=== PATIENT | female | born 1970 | race African-American/Black ===

== ENCOUNTER 2020-07-26 11:03 | Inpatient (IN) | payer OTHER ==
[~2020-07-26] VITALS: Ht 152.4 cm; Wt 71.7 kg
[~2020-07-26 11:03] MED LIST: NORCO 5-325 TA1 EACH PO; PHENERGAN 25 MG25 M1 PO
[2020-07-26 11:14] VITALS: BP 144/70
[2020-07-26 11:49] LABS: URINE BILIRUBIN NEGATIVE (Negative); URINE BLOOD 3+ (Negative); URINE CLARITY CLEAR; URINE COLOR YELLOW; URINE GLUCOSE-RANDOM* NEGATIVE (Negative); URINE KETONES NEGATIVE (Negative); URINE LEUKOCYTES-REFLEX NEGATIVE (Negative); URINE NITRITE-REFLEX NEGATIVE (Negative); URINE PROTEIN (DIPSTICK) NEGATIVE (Negative); URINE UROBILINOGEN 0.2 E.U./dl (0.2-1.0)
[2020-07-26 12:09] LABS: CASTS None Seen /LPF (None Seen); SQUAMOUS 4-10 Moderate /LPF (0-3)
[2020-07-26 12:10] LABS: BACTERIA-REFLEX None Seen /HPF (None Seen); CRYSTALS None Seen /LPF (None Seen); URINE RBC >20 Many /HPF (0-2); URINE WBC-REFLEX 0-5 Rare /HPF (0-5)
[2020-07-26 12:18] LABS: EOSINOPHILS 0.2 % (0.0-3.0); MCV 60.4 fL (80.0-100.0)
[2020-07-26 12:19] LABS: ABSOLUTE NEUTROPHILS 4.8 thou/uL (1.4-8.2); BASOPHILS 1.7 % (0.0-2.0); HEMATOCRIT 22.7 % (37.0-47.0); HEMOGLOBIN 6.8 gm/dL (12.0-15.0); LYMPHOCYTES 19.8 % (24.0-44.0); MCH 18.1 pg (26.0-34.0); MONOCYTES 4.3 % (1.0-8.0); PLATELET COUNT 882 thou/uL (150-400); RBC 3.76 mil/uL (4.20-5.00); RDW 19.1 % (10.5-14.5); WBC 6.4 thou/uL (4.0-11.0)
[2020-07-26 12:29] LABS: CALCIUM 9.5 mg/dL (8.5-10.1); POTASSIUM 3.8 mmol/L (3.5-5.1)
[2020-07-26 14:00] LABS: ANISOCYTOSIS 1+; HYPOCHROMASIA 3+; MICROCYTES 2+; OVALOCYTES FEW; PLATELET ESTIMATE MARKEDLY INCREASED; POIKILOCYTOSIS SLIGHT
--- NOTE | 2020-07-26 14:25 | NUR ---
ASSUMED CARE OF PT WHEN TRANSFERRED TO #4 FROM CANALES BED #3. NO S/S DISTRESS OBSERVED. PT PLACED ON MONITOR, DENIES NEEDS AT THIS TIME.
[2020-07-26 18:17] VITALS: BP 125/75
[2020-07-26 18:28] LABS: FOLIC ACID 15.2 ng/mL (8.6-58.9)
[2020-07-26 18:30] VITALS: BP 126/77
[2020-07-26 19:40] VITALS: BP 135/69
[2020-07-26 22:15] VITALS: BP 125/63
--- NOTE | 2020-07-27 01:55 | NUR ---
completed blood transfusion from ed. vss see charted vitals.
[2020-07-27 02:10] VITALS: BP 124/66; BP 134/66
[2020-07-27 05:24] LABS: HEMATOCRIT 29.8 % (37.0-47.0); MCH 21.2 pg (26.0-34.0); MCHC 31.2 g/dL (28.0-37.0); RBC 4.4 mil/uL (4.20-5.00); RDW 28.9 % (10.5-14.5); WBC 9.2 thou/uL (4.0-11.0)
[2020-07-27 05:35] LABS: HEMOGLOBIN 9.3 gm/dL (12.0-15.0); MCV 67.8 fL (80.0-100.0)
[2020-07-27 07:11] VITALS: BP 152/81
--- NOTE | 2020-07-27 07:37 | EKG ---
[address] [place] [address] ELECTROCARDIOGRAM REPORT Name: GERMAN SILVEIRA Room #: 460-P ADM IN M.R.#: [id number] Admission: 07/26/20 Attend Phys: Jamie Adam MD Discharge: Date of : 74 Report #: [id number] [facility] ED Test Date: 2020-07-26 Test Time: 11:39:07 Pat Name: GERMAN SILVEIRA Department: Room: [facility] Gender: F Senior Accountant Analyst: JOÃO : 1970 Requested By: Shahram Freire Order Number: [id number] MD: Rob Renee Measurements Intervals [place] Rate: 78 P: 59 MI: 167 QRS: -1 QRSD: 93 T: 65 QT: 386 QTc: 440 Interpretive Statements Sinus rhythm Borderline T wave abnormalities No previous ECG available for comparison Electronically Signed On 07-27-2020 7:37:24 METAL DIE FINISHER by Rob Renee [email or web address] <ELECTRONICALLY SIGNED> By: Rob Renee MD, [facility] 07/27/20 0737 [id number] Rob Renee MD, FACC /EPI
--- NOTE | 2020-07-27 08:08 | NUR ---
ADMIT PT ADMITTED FOR DYSFUNCTIONAL UTERINE BLEEDING. BLEEDING HEAVILY PAD COUNT OF 3. 2 UNITS OF PRBC'S INFUSED ORDERED. VSS CONTINUE POC.
--- NOTE | 2020-07-27 09:11 | NUR ---
RD received consult for wound. Pt admitted for excessive uterine bleeding related to uterine fibroids. Noted small, L greater toe vacular wound. No other pressure ulcers noted. Pt with decreased appetite, N/V related to uterine cramping. RD encouraged small, frequent intakes of clear liquids and bland foods until N/V resolves. Pt grateful for visit, remains low nutritional risk with current interventions in place.
--- NOTE | 2020-07-27 12:39 | NUR ---
ASSUMED PT CARE THIS AM. PT HAS NO COMPLAINTS OF PAIN OR DIZZINESS. COMPLAINED OF NAUSEA, RESOLVED WITH MEDS GIVEN PER EMAR. PT AMBULATORY TO THE RESTROOM. IV PATENT, FLUIDS INFUSING WELL. CALLS APPROPRIATELY WHEN NEEDED.
[2020-07-27 15:57] VITALS: BP 146/79
[2020-07-27 19:13] VITALS: BP 138/73
--- NOTE | 2020-07-28 03:53 | NUR ---
ASSUMED CARE OF PT AT 1900. PT IS A/O X4 AND IS UP AD GABY. PT C/O NAUSEA. PRN NAUSEA MEDICATION GIVEN DIRECTED. PT CHANGED PAD X3 DUE TO BLOODY DRAINAGE. DEPO LUBRON SHOT NOT GIVEN THEIR IS NOT AN INFUSION NURSE IN HOUSE. WILL ENDORSE THIS INFORMATION TO DAYSHIFT NURSE TO NOTIFY INFUSION NURSE TO GIVE SHOT. DID NOT HAVE IV ACCESS FOR A WHILE THIS NOC IT INFILTRATED AND WAS REMOVED WITH CATHETER INTACT ON DAYSHIFT. ANOTHER IV PLACED AND RESUMED IV FLUIDS. VSS. NO C/O PAIN OR DISCOMFORT. CALL LIGHT IS WITHIN REACH. WILL CONTINUE TO MONITOR.
[2020-07-28 06:18] LABS: HEMOGLOBIN 9.3 gm/dL (12.0-15.0); MCH 20.6 pg (26.0-34.0); MCHC 29.9 g/dL (28.0-37.0); MCV 68.7 fL (80.0-100.0); RBC 4.51 mil/uL (4.20-5.00); RDW 28.7 % (10.5-14.5); WBC 9.9 thou/uL (4.0-11.0)
[2020-07-28 07:03] VITALS: BP 142/79
--- NOTE | 2020-07-28 13:28 | NUR ---
Assumed pt care at 7am.Pt in bed alert and oriented x4.Assessment completed. Pt wanted to rest and nap after breakfast.Pt c/o nausea and vomiting.Zofran ivp given as ordered with relief.Dr Graham here,order noted.Will continue to monitor.
[2020-07-28 15:22] VITALS: BP 149/94
[2020-07-28 19:19] VITALS: BP 151/80
--- NOTE | 2020-07-29 02:26 | NUR ---
ASSUMED CARE OF PT AT 1900. PT IS A/O X4 AND IS UP WITH SBA TO THE BR. PT HAD SHOWER AND ACCIDENTALLY DISCHARGED IV. REPLACED IV AND RESUMED FLUIDS. C/O NAUSEA. PRN NAUSEA MEDICATION GIVEN DIRECTED. FALL PRECAUTIONS ARE IMPLEMENTED, CALL LIGHT IS WITHIN REACH. WILL CONTINUE TO MONITOR.
[2020-07-29 05:37] LABS: HEMATOCRIT 28.4 % (37.0-47.0); HEMOGLOBIN 8.9 gm/dL (12.0-15.0); MCH 21.2 pg (26.0-34.0); MCHC 31.2 g/dL (28.0-37.0); MCV 67.9 fL (80.0-100.0); RBC 4.19 mil/uL (4.20-5.00); RDW 28.5 % (10.5-14.5); WBC 8.2 thou/uL (4.0-11.0)
[2020-07-29 07:36] VITALS: BP 151/84
[2020-07-29] MEDS ORDERED: IRON325 PO (10:27)
[2020-07-29] MEDS ORDERED: ZOFRAN ODT4 MG PO (10:27)
[2020-07-29 12:42] VITALS: BP 151/84
--- NOTE | 2020-07-29 16:38 | NUR ---
Assumed pt care at 7am.Assessment completed .Pt reported feeling better today but still bleeding.Dr Adam here,dc order noted but pt wanted to go home later this afternoon.Dr Graham notified about pt dc home and follow up visit order received.Dc summary compile and reviewed with pt.Saline lock dc'd.At 1500,pt dc home per wc accompanied by unit sec.
== END 2020-07-29 14:50 | disposition home or self-care (01) | DRG 761 ==
LOC: ER 11:03 → EROBS 16:46 → 4W 16:46
PROVIDERS: Emergency Medicine; ADMIT Hospitalist; ATTEND Hospitalist
PROC: 30233N1 Transfusion of Nonautologous Red Blood Cells into Peripheral Vein, Percutaneous Approach (ICD-10-PCS; principal; 2020-07-27)
DX: D25.9 Leiomyoma of uterus, unspecified (principal); N93.9 Abnormal uterine and vaginal bleeding, unspecified; D64.89 Other specified anemias; Z79.899 Other long term (current) drug therapy; Z88.0 Allergy status to penicillin
CPT/HCPCS: 10040

== ENCOUNTER 2020-08-01 09:00 | Emergency (ER) | payer OTHER ==
[~2020-08-01] VITALS: Ht 170.2 cm; Wt 81.7 kg
[~2020-08-01 09:00] MED LIST changes: +IRON325 PO; +ZOFRAN ODT4 MG PO
[2020-08-01 09:46] LABS: WBC 11.6 thou/uL (4.0-11.0)
[2020-08-01 09:48] LABS: HEMATOCRIT 32.3 % (37.0-47.0); HEMOGLOBIN 9.9 gm/dL (12.0-15.0); MCH 20.8 pg (26.0-34.0); MCHC 30.7 g/dL (28.0-37.0); MCV 67.7 fL (80.0-100.0); RBC 4.78 mil/uL (4.20-5.00); RDW 29.4 % (10.5-14.5)
[2020-08-01 09:54] LABS: CALCIUM 9.9 mg/dL (8.5-10.1); CREATININE 1.2 mg/dL (0.6-1.0); POTASSIUM 3.2 mmol/L (3.5-5.1)
[2020-08-01 09:59] LABS: INR 1.1; PLATELET COUNT 991 thou/uL (150-400); PROTIME 10.9 Seconds (9.3-11.4)
[2020-08-01 10:32] LABS: ABSOLUTE NEUTROPHILS 8.5 thou/uL (1.4-8.2)
[2020-08-01 10:33] LABS: ANISOCYTOSIS 3+; HYPOCHROMASIA 3+; MICROCYTES 2+; POLYCHROMASIA OCCASIONAL
[2020-08-01] MEDS ORDERED: LYSTEDA650 MG PO (11:07)
[2020-08-01 13:28] VITALS: BP 138/78
== END 2020-08-01 13:28 | disposition home or self-care (01) ==
LOC: ER 09:00
PROVIDERS: Emergency Medicine
DX: N93.8 Other specified abnormal uterine and vaginal bleeding (principal); Z20.828 Contact with and (suspected) exposure to other viral communicable diseases; R42 Dizziness and giddiness; Z88.0 Allergy status to penicillin; Z79.899 Other long term (current) drug therapy

== ENCOUNTER 2020-08-15 13:44 | Inpatient (IN) | payer OTHER ==
[~2020-08-15] VITALS: Ht 170.2 cm; Wt 70.3 kg
--- NOTE | ~2020-08-15 | O ---
[facility] [place] [address] OPERATIVE REPORT Name: GERMAN SILVEIRA Room #: 211-P [facility] IN M.R.#: [id number] Admission: 08/15/20 Attend Phys: Eddy Hendricks MD Discharge: Date of : 74 Report #: [id number] THIS REPORT FOR: cc: [facility] - Clinic physician unknown [facility] - Clinic physician unknown Leslie Graham DO ~ DATE OF SERVICE: 08/18/2020 PREOPERATIVE DIAGNOSES: 1. Enlarged uterus. 2. Uterine fibroids. 3. Anemia. 4. Thrombocytosis. POSTOPERATIVE DIAGNOSES: 1. Enlarged uterus. 2. Uterine fibroids. 3. Anemia. 4. Thrombocytosis. OPERATIVE PROCEDURE: Total abdominal hysterectomy with bilateral salpingectomy. SURGEON: Dr. Leslie Graham. EDGER OPERATOR: Mayda Casey MD ANESTHESIA: General. INTRAVENOUS FLUIDS: 300 mL. URINE OUTPUT: 50 mL. ESTIMATED BLOOD LOSS: 20 mL. COMPLICATIONS: None. PATHOLOGY: Uterus with cervix, bilateral fallopian tubes. DESCRIPTION OF PROCEDURE: The patient was taken to the operating room where general anesthesia was administered and found to be adequate. She was then prepped and draped in normal sterile fashion in dorsal supine position. A Pfannenstiel skin incision was made in the patient's abdomen approximately 2 cm above the symphysis pubis and carried through to the underlying layer of fascia. The fascia was nicked in the midline. The incision was extended laterally with Guerra scissors. The superior aspect of the fascial incision was grasped with [facility] [address] [place] [address] OPERATIVE REPORT Name: JORDANAGERMAN Sandra Room #: 211-P ADM IN M.R.#: [id number] Admission: 08/15/20 Attend Phys: Eddy Hendricks MD Discharge: Date of : 74 Report #: [id number] Graciela clamps, elevated and the underlying rectus muscle dissected off bluntly as well as with Guerra scissors. Attention was then turned to the inferior aspect of this incision, which in a similar fashion was grasped with Graciela clamps, elevated and the underlying rectus muscle dissected off bluntly and with Guerra scissors. The rectus muscles were in the midline. The peritoneum was identified, tented upward and entered sharply with Metzenbaum scissors. The peritoneal incision was then extended superiorly and inferiorly with good visualization. The Alaina retractor was then placed in the patient's abdomen. The base was placed in slight Trendelenburg position. The uterus was grasped with a Rasheed tenaculum and brought through the incision and the bowel was packed cephalad with moist laparotomy sponges. Bilateral fallopian tubes were identified and transected across the mesosalpinx using the Insorb device. Attention was turned to the right where the uteroovarian ligament as well as the round ligament were transected with the EnSeal, followed by the broad ligament. This exact same procedure was performed on the patient's left where the uteroovarian ligament, the broad ligament, and the round ligament were transected with the EnSeal device. The vesicouterine peritoneum was then identified, tented upward and then removed with Metzenbaum scissors and transected. The vesicouterine peritoneum was then bluntly dissected off the anterior uterus and cervix. The EnSeal device was used to further transect the remainder of the broad ligament as well as uterine artery complexes. Straight Villa clamps were then used bilaterally to clamp the remainder of the pelvic vasculature and uterine arteries. These pedicles were tied with 0 Vicryl. Z Clamps were then used to clamp across the base of the cervix at the apex of the vagina. The cervix was then amputated off the apex of the vagina and the specimen was sent for pathology. Using a series of [id number]-[id number] stitches of 0 Vicryl, the vaginal mucosa was reapproximated. Small amount of bleeding was noted from the central aspect; therefore, this was oversewn with 0 Vicryl. Excellent hemostasis was then observed. The pelvis was copiously irrigated. All pedicles as well as vaginal cuff were noted to be hemostatic. Olivier was placed over the pedicles and the vaginal cuff after the irrigant was removed. All sponges were removed from the patient's abdomen. The retractor was removed from the patient's abdomen and bowel was placed in its normal anatomical position. The muscle and peritoneum were then reapproximated using 3-0 Vicryl. The fascia was closed with 0 PDS. Subcutaneous tissue was irrigated. Bovie cautery was used to obtain excellent hemostasis. The skin was then closed in subcuticular stitch using 4-0 Monocryl. The patient tolerated the procedure well. Sponge, lap and needle counts were reported as correct. The patient was taken to the recovery room in stable condition. By: [id number] Leslie Graham DO /nt
[~2020-08-15 13:44] MED LIST changes: +LYSTEDA650 MG PO
[2020-08-15 13:45] VITALS: BP 132/56
[2020-08-15 17:06] LABS: MCV 71.3 fL (80.0-100.0); WBC 9.9 thou/uL (4.0-11.0)
[2020-08-15 17:07] LABS: HEMATOCRIT 20.4 % (37.0-47.0); MCH 21.5 pg (26.0-34.0); MCHC 30.2 g/dL (28.0-37.0); RBC 2.86 mil/uL (4.20-5.00); RDW 28.9 % (10.5-14.5)
[2020-08-15 17:11] LABS: HEMOGLOBIN 6.1 gm/dL (12.0-15.0); PLATELET COUNT 1210 thou/uL (150-400)
[2020-08-15 17:15] LABS: CALCIUM 9.5 mg/dL (8.5-10.1); POTASSIUM 3.9 mmol/L (3.5-5.1)
[2020-08-15 17:45] LABS: ABSOLUTE NEUTROPHILS 6.3 thou/uL (1.4-8.2)
[2020-08-15 17:47] LABS: ANISOCYTOSIS 2+; HYPOCHROMASIA 2+; MICROCYTES 1+
[2020-08-15 17:48] LABS: TARGET CELLS FEW
[2020-08-15 17:49] LABS: POLYCHROMASIA SLIGHT
[2020-08-15 19:15] VITALS: BP 132/56
[2020-08-15 19:29] VITALS: BP 134/55
[2020-08-15 23:29] VITALS: BP 115/62; BP 118/62
[2020-08-16 05:14] LABS: HEMOGLOBIN 6.9 gm/dL (12.0-15.0)
[2020-08-16 05:16] LABS: HEMATOCRIT 22.8 % (37.0-47.0)
[2020-08-16 05:40] VITALS: BP 117/65
[2020-08-16 07:28] VITALS: BP 109/66
--- NOTE | 2020-08-16 07:31 | NUR ---
PATIENT ARRIVED TO THE UNIT AROUND 1914. A&OX4. SR/ST ON THE MONITOR. RA. OREINTATED TO THE UNIT. STAND BY ASSIST. RECIEVED 1 UNIT OF BLOOD LAST NIGHT. ASSESSMENTS CHARTED. NO COMPLAINTS OF PAIN OR DISTRESS. CONTINUING TO ASSESS CLOSESLY ACCORDING TO POC.
[2020-08-16 11:08] VITALS: BP 107/67; BP 115/65; BP 144/80
[2020-08-16 15:21] VITALS: BP 113/71
--- NOTE | 2020-08-16 18:45 | NUR ---
PT IS ALERT AND ORIENTED X4, PLEASENT. PT DENIES PAIN. EDUCATION CONDUCTED ON TELLING NURSE CONTENTS OF FEMALE HYGIENE PAD. PT HAD MODERATE BLEEDING IN FEMALE PAD, WITH MINIMAL CLOTTING. PT RECEIVED ONE (1) UNIT OF PRBC. PT HAD MAXIMUM BLEEDING IN FEMININE HYGIENE PAD WITH MODERATE CLOTS. PT HAD NO COMPLAINTS OF DIZZINESS OR WEAKNESS, NO REACTION TO BLOOD TRANSFUSION. POC IS TO GIVE ONE (1) UNIT OF BLOOD, ASSESS LAB VALUES FOR HGB. SURGERY SCHEDULED AT 08/17/2020. STDBY ASSIST. FALL PRECAUTIONS IN PLACE. NO CONCERNS AT THIS TIME.
[2020-08-16 20:48] VITALS: BP 112/78
[2020-08-16 21:13] VITALS: BP 112/78; BP 113/65; BP 116/61
[2020-08-17 04:45] VITALS: BP 130/75
[2020-08-17 07:24] LABS: HEMATOCRIT 28.8 % (37.0-47.0)
[2020-08-17 07:38] LABS: HEMOGLOBIN 9.1 gm/dL (12.0-15.0)
--- NOTE | 2020-08-17 07:43 | NUR ---
PT SLEPT MOST OF THE NIGHT. A&OX4. RECIEVED 2 UNITS OF BLOOD YESTERDAY. SOME SCANT BLOOD NOTED ON PAD AFTER TRANSFUSION WAS FINISHED. VSS. A&OX4. NO COMPLAINTS OF PAIN OR DISTRESS. STAND BY ASSIST. CONTINUING TO ASSES ACCORDING TO POC.
[2020-08-17 08:00] VITALS: BP 129/76
[2020-08-17 09:51] LABS: MONOCYTES 5.8 % (1.0-8.0)
[2020-08-17 09:53] LABS: ABSOLUTE NEUTROPHILS 4.5 thou/uL (1.4-8.2); BASOPHILS 1.6 % (0.0-2.0); EOSINOPHILS 1.7 % (0.0-3.0); LYMPHOCYTES 20.4 % (24.0-44.0); POLYS 70.5 % (36.0-66.0); WBC 6.4 thou/uL (4.0-11.0)
[2020-08-17 15:08] LABS: HEMATOCRIT 29.1 % (37.0-47.0); HEMOGLOBIN 9.3 gm/dL (12.0-15.0)
[2020-08-17 15:15] VITALS: BP 128/80
--- NOTE | 2020-08-17 16:41 | NUR ---
Chart reviewed and case discussed with the care team. Pt anticipating surgery for LARS tomorrow. Hemo/onc consulted today due to thrombocytopenia. Pt uses [facility] for pcp. Pt lives at home with children. Indep and working prior to admission. No cm interventions indicated at this time. Will follow along should dc needs arise.
[2020-08-17 19:57] VITALS: BP 120/65
[2020-08-17 23:26] LABS: HEMATOCRIT 26.9 % (37.0-47.0); HEMOGLOBIN 8.5 gm/dL (12.0-15.0)
[2020-08-18 04:23] VITALS: BP 134/69
--- NOTE | 2020-08-18 05:08 | NUR ---
SLEPT MOST OF SHIFT. UP AD GABY IN ROOM WITH STEADY GAIT. WORKING ON GOALS AND PLAN OF CARE FOR NOC. DENIES COMPLAINTS OF PAIN THIS SHIFT. AWAITING THIS AM SURGERY. NPO PAST MN. CONTINUE TO ASSES CLOSELY.
[2020-08-18 06:13] LABS: HEMOGLOBIN 8.8 gm/dL (12.0-15.0)
[2020-08-18 06:15] LABS: HEMATOCRIT 26.9 % (37.0-47.0); MCH 25.7 pg (26.0-34.0); MCHC 32.8 g/dL (28.0-37.0); RBC 3.44 mil/uL (4.20-5.00); RDW 26.3 % (10.5-14.5); WBC 6.4 thou/uL (4.0-11.0)
[2020-08-18 06:16] LABS: PLATELET COUNT 933 thou/uL (150-400)
[2020-08-18 06:17] LABS: MCV 78.4 fL (80.0-100.0)
--- NOTE | 2020-08-18 07:04 | HC ---
[facility] [place] [address] CONSULTATION Name: GERMAN SILVEIRA Sandra Room #: 211-P ADM IN M.R.#: [id number] Admission: 08/15/20 Attend Phys: Eddy Hendricks MD Discharge: Date of : 74 Report #: [id number] THIS REPORT FOR: cc: [facility] - Clinic physician unknown [facility] - Clinic physician unknown Tee Javier MD ~ DATE OF SERVICE: 08/17/2020 REASON FOR CONSULTATION: Thrombocytosis. addendum 08/18/2019 703AM: outside fax records from 05/28/2018 had hgb 9.0, mcv 70, wbc 6.1, and plts 671. Unclear whether elevated plts were due to iron deficiency that would appear to be present with decreased mcv or due to essential thrombocythemia or other bone marrow disorder. end addendum HISTORY OF PRESENT ILLNESS: The patient is a 50-year-old female who was not aware of any difficulties with her platelet count until recently. We do note that from looking at her lab work at [facility], she does have lab work from back in 2010, a one-time visit, I believe is the ER for abdominal pain, in this inflammatory setting that her platelet count was 491,000 at that time. Also, note that her MCV was 84.5 and her hemoglobin was 12. More recently, she began having difficulty with vaginal bleeding in about May and had been to [facility] ER on 07/26, at which time, her platelet count was 882,000 and it was on 08/01 it is 991,000. Two days ago on the , it was 1,210,000. Note that we will ask that this be repeated on today's lab work, so we can see if it is further up or has declined. The patient had no prior knowledge of platelet abnormalities. She denies any history of any bleeding or clotting troubles in the past. She is also not aware of any family members with these types of issues. SOCIAL HISTORY: Nonsmoker. FAMILY HISTORY: No bleeding or clotting disorders. PHYSICAL EXAMINATION: GENERAL: The patient appears her stated age. VITAL SIGNS: Height is 5 feet 7 inches, 170.2 cm. Weight 142 pounds or 64.5 kilograms. Blood pressure is 130/75, respirations 16, O2 sat 100%, pulse 74, afebrile at 98.9. MOOD: She is alert, pleasant, and anxious. NEUROLOGIC: Speech and thought pattern normal. [facility] [address] [address] CONSULTATION Name: GERMAN SILVEIRA Room #: 211-P [facility] IN ..#: [id number] Admission: 08/15/20 Attend Phys: Eddy Hendricks MD Discharge: Date of : 74 Report #: [id number] LYMPHATICS: No enlarged lymph nodes in the supraclavicular, cervical, axillary or inguinal region. ABDOMEN: Without masses. EXTREMITIES: Without clubbing, cyanosis or edema. LABORATORY DATA: As mentioned above showed a hemoglobin on admission at 6.1, MCV of 71.3. Coags have been normal. Platelet count 2 days ago, 1,210,000. ASSESSMENT AND PLAN: 1. Thrombocytosis, hopefully reactive, but need other records from previous sources to try to help work this out. In the perfect world, it would be nice to have results of a JAK2 mutation or bone marrow biopsy or [place] chromosome to rule out chronic myelogenous leukemia or a myeloproliferative disorder and we can do this as an outpatient. The patient is aware of this. We also discussed the potential risk of platelet counts. Hopefully, given her age, the risk would be minimal, but there is a small but real risk of increased bleeding or clotting with a platelet count this high if she has essential thrombocythemia. Unfortunately, there is no quick safe way to get it done before surgery. I will discuss with my partners and see if they have other thoughts. 2. Most presumed iron deficiency anemia from vaginal blood loss. We will add folate. We will consider replacement iron. 3. Bleeding from uterine fibroid. Tentatively agree with plans for hysterectomy tomorrow. As above, we will try to get records from [facility] and will check with my partners. <ELECTRONICALLY SIGNED> By: Tee Javier MD 08/18/20 0704 [id number] [id number] Tee Javier MD /nt
[2020-08-18 07:21] VITALS: BP 129/69
[2020-08-18 10:22] LABS: ABSOLUTE NEUTROPHILS 2.9 thou/uL (1.4-8.2)
[2020-08-18 16:35] VITALS: BP 105/58
--- NOTE | 2020-08-18 17:18 | NUR ---
MEDICATED FOR POST OP PAIN DILAUDID 0.2. PT HAS NAUSEA HX SO WILL MONITOR CLOSELY FOR SUCH POST MEDICATION. INCISION IS C,D,I WITH NO OOZING FROM DERMABOND SITE. PEDAL PULSES 2+, STRONG BILATERALLY. EDUCATED ON POST OP PAIN WELL AND MANAGED EXPECTATIONS. RAMIREZ=9. HAS ALOT OF GAS TOO.
[2020-08-18 19:35] VITALS: BP 112/59
[2020-08-18 20:08] VITALS: BP 112/59
[2020-08-19 03:20] LABS: HEMATOCRIT 29.3 % (37.0-47.0); HEMOGLOBIN 9.2 gm/dL (12.0-15.0); MCH 24.9 pg (26.0-34.0); MCHC 31.5 g/dL (28.0-37.0); RBC 3.71 mil/uL (4.20-5.00); WBC 9.4 thou/uL (4.0-11.0)
[2020-08-19 03:35] LABS: ALBUMIN 3.2 g/dL (3.4-5.0); CALCIUM 8.6 mg/dL (8.5-10.1); POTASSIUM 4.5 mmol/L (3.5-5.1); TOTAL BILIRUBIN 0.4 mg/dL (0.2-1.0); TOTAL PROTEIN 6.5 g/dL (6.4-8.2)
--- NOTE | 2020-08-19 03:45 | NUR ---
PT AOX4. PT REPORTS ABDOMINAL PRESSURE LIKE PAIN. PT RECEIVING PRN IV MORPHINE Q3HR WITH PRN PO NORCO Q4HR, PRN PO APAP Q4HR, AND PRN PO IBUPROFEN Q6HR AVAILABLE. PT REPORTS NAUSEA WITHOUT EMESIS. PT RECEIVING PRN IV ZOFRAN Q6HR. PT REMAINS NPO, REFUSING TO ADVANCE DIET TO CLEAR LIQUIDS DUE TO REPORTS OF FEAR OF VOMITING AND INCREASED PAIN. PROVIDED THERAPEUTIC LISTENING AND COMMUNICATION WITH REASSURANCE. PT CONTINUES TO REPORT NAUSEA WITHOUT EMESIS, PRIOR TO NEXT PRN DOSE OF ZOFRAN. ONCALL PRODUCTION CHECKER NOTIFIED, RECEIEVED ORDERS TO CHANGE FREQUENCY OF IV ZOFRAN ADMINISTRATION FROM Q6HR TO Q4HR. PT RESTING IN BED THROUGHOUT SHIFT, FREQUENT REPOSITIONING ENCOURAGED, PT REFUSING REPOSITIONING DUE TO REPORTS OF WORSENING PAIN WITH ACTIVITY AND MOVEMENT. PT ENCOURAGED TO NOTIFY STAFF FOR ALL NEEDS, CALL LIGHT WITHIN REACH, BED ALARM ON, BED LOCKED IN LOWEST POSITION, FREQUENT MONITORING WILL CONTINUE.
[2020-08-19 04:00] VITALS: BP 164/80
[2020-08-19 08:00] VITALS: BP 139/78
[2020-08-19 12:00] VITALS: BP 140/81
--- NOTE | 2020-08-19 17:44 | NUR ---
RECEIVED PT'S CARE AROUND 0725; PT. ON BED; ALERT; DURING AM ASSESSMENT PT. AOX4; C/O PAIN; PRN PAIN MEDICATION GIVEN WITH AM MEDICATIONS; EDUCATED ABOUT PAIN MANAGEMENT; ST. UNDERSTANDING; REASSESSMENT PT. ST. DECREASE PAIN; EDUCATED ABOUT THE IMPORTANCE OF GETTING UP FROM BED; ST. UNDERSTANDING; PER DR. STEIN PT. NEEDS TO GET UP AND AMBULATE; MIGHT SHOWER; LEAD FABRICATOR ST. UNDERSTANDING; PT. UP TO THE RESTHROOM WITH ASSISSTANCE; ABLE TO AMBULATE TO BATHROOM; EDUCATED ABOUT FALL PRECAUTIONS; ST. UNDERSTANDING; AMBULATED ON THE HALLWAY DURING THE AFTERNOON; TOLERATE WELL; ENCOURAGE TO AMBULATE LATER ON THE EVENING; ST. UNDERSTANDING; PT. ST. ABLE TO AMBULATE TO RESTHROOM WITHOUT ASSISSTANCE; REMAINED ABOUT FALL PRECAUTIONS; ST. UNDERSTANDING; NOTIFIED ABOUT NEW PRN PAIN MEDICATION; ST. UNDERSTANDING; REMAINED ABOUT PAIN MANAGEMENT; ST. UNDERSTANDING; ASSESSMENT CHARGED; FOLLOWING POC; WILL PASS ON REPORTL
[2020-08-19 20:55] VITALS: BP 129/64
[2020-08-20 03:01] LABS: HEMATOCRIT 25.7 % (37.0-47.0); HEMOGLOBIN 8.1 gm/dL (12.0-15.0); MCHC 31.5 g/dL (28.0-37.0); MCV 79.4 fL (80.0-100.0); RBC 3.23 mil/uL (4.20-5.00); RDW 25.8 % (10.5-14.5); WBC 9.1 thou/uL (4.0-11.0)
[2020-08-20 04:45] VITALS: BP 124/71; BP 161/79
--- NOTE | 2020-08-20 07:48 | NUR ---
ASSUME CARE 1900. PT/VITALS STABLE. INTERMITTENT INCISIONAL PAIN RELIEVED BY PAIN MEDS. GOOD TOLERANCE TO ACTIVITY. ENCOURAGED TO WALK FREQUENTLY. NO DISTRESS NOTED. VOIDINH IN TOILET ADEQUATELY PER PT. NO BM BUT PASSING GAS. ASSESSMENT CHARTED. PROGRESSING WELL WITH POC. PLAN IS POSSIBLE DISCHARGE TPDAY. WILL CONTINUE TO MONITOR AND FOLLOW WITH POC
[2020-08-20 08:20] VITALS: BP 120/69
[2020-08-20 11:00] VITALS: BP 117/63
[2020-08-20 16:21] VITALS: BP 119/64
--- NOTE | 2020-08-20 16:50 | NUR ---
PT IS ALERT AND ORIENTED X4, PLEASANT. PT IS POST OP DAY 2. PT INCISION CLEAN, DRY, INTACT, NO DISCHARGE, DERMABOND. PT TOLERATING SOFT DIET, PROGRESSED TO REGULAR DIET PER ORDERS. DR STEIN CONSULTED. NURSE WALKED WITH PT WITH GAIT BELT AND WALKER THE LENGTH OF ONE CANALES AND BACK TO PT ROOM. PT COMPLAINS PAIN IS GENERAL DISCOMFORT; POST AMBULATION PAIN INCREASED. POC IS PAIN MGMT, PROMOTE AMBULATION, AND ENCOURAGE PT TO PASS FLATUS/HAVE BM; CONTINUE TO MONITOR INCISION SITE. NO CONCERNS AT THIS TIME.
[2020-08-20 20:15] VITALS: BP 106/65
[2020-08-21 03:08] LABS: HEMATOCRIT 25.5 % (37.0-47.0); MCH 24.9 pg (26.0-34.0); MCHC 31.4 g/dL (28.0-37.0); MCV 79.2 fL (80.0-100.0); RBC 3.22 mil/uL (4.20-5.00); RDW 26.6 % (10.5-14.5); WBC 7.7 thou/uL (4.0-11.0)
[2020-08-21 04:45] VITALS: BP 130/81
--- NOTE | 2020-08-21 06:22 | NUR ---
ASSUME CARE 1900. PT/VITALS STABLE. INTERMITTENT INCUISIONAL PAIN WITH RELIEF FROM PAIN MEDS. GOOD ENDURANCE WITH ACTIVITY. UP AD GABY. ASSESSMENT CHARTED. PROGRESSING WELL WITH POC. NO BLEEDING OR DISTRESS NOTED THROUGH SHIFT. MILD CONSTIPATION WITH STOOL SOFTENER STARTED. PLAN IOS POSSIBLE DISCHARGE TODAY. WILL CONTINUE TO MONITOR AND FOLLOW WITH POC
[2020-08-21 07:50] VITALS: BP 118/78
[2020-08-21] MEDS ORDERED: PERCOCET PO (08:46)
[2020-08-21 11:42] VITALS: BP 121/78
--- NOTE | 2020-08-21 11:44 | NUR ---
RECEIVED PT'S CARE AROUND 0745; PT. ON BED; A0X4; C/O PAIN OVER ABDOMEN; PRN PAIN MEDICATION GIVEN AT 0500; PT. REFUSED 1 TAB PRN PO PAIN MEDICATION; EDUCATEDD ABOUT PAIN MANAGEMENT; ST. UNDERSTANDING; DURING AM ASSESSMENT MEDICATION GIVEN; REQUESTED WRITEN NOTE FROM PHYSICIAN FOR WORK; DR. GARCIA NOTIFIED; RX PAD GIVEN; NOTIFIED ABOUT D/C ORDERS; ST. UNDERSTANDING; EDUCATED ABOUT D/C PROCESS; ST. UNDERSTANDING; ASSESSMETN CHARGED; FOLLOWING POC; WILL WORK ON D/C ORDERS;
[2020-08-21 12:13] VITALS: BP 121/78
--- NOTE | 2020-08-21 19:06 | PATH ---
[facility] [place] [address] [address] PATHOLOGY RPT PROCEDURE Name: KATARZYNA SILVEIRA Sandra Room #: 211-P DIS IN M.R.#: [id number] Admission: 08/15/20 Date of : 74 Discharge: 08/21/20 Report #: [id number] Path Case #: [id number] [facility] Accession Number: [id number] . 01 Material submitted: . uterus - UTERUS WITH CERVIX, BILATERAL TUBES . 01 Clinical history: . TOTAL ABDOMINAL HYSTERECTOMY BILATERAL SALPINGECTOMY VAGINAL BLEEDING . 02 Diagnosis: Uterus with cervix and bilateral tubes, hysterectomy with bilateral salpingectomy: - Weakly proliferative endometrium; negative for hyperplasia or malignancy. - Extensive adenomyosis throughout the uterine body. - Leiomyomata, largest measuring 3.5 cm. - Mild chronic cervicitis with immature squamous metaplasia; negative for dysplasia. - Endometriosis within cervix. - Bilateral fallopian tubes showing congestion and reactive changes. (IUV/db; 08/21/2020) LBQ 08/21/2020 1506 Local . 02 Electronically signed: . Martha Hoover MD, Pathologist NPI- [id number] . 01 Gross description: . Received in formalin labeled "Katarzyna Silveira, uterus with cervix, bilateral tubes" is a hysterectomy specimen with attached bilateral fallopian tubes. The uterus weighs 381 g and measures 12.5 cm from fundus to cervix, 9.6 cm from cornu to cornu, and 8.0 cm from anterior to posterior. The serosa is pink-dowd and smooth with a subserosal leiomyoma on the fundus measuring 3.5 cm in greatest dimension. The ectocervix is pink-dowd and glistening with a slitlike cervical os measuring 1.3 cm. The cervix is probed patent and the uterus is opened to reveal a 4.0 x 0.9 cm endocervical canal and a 7.0 x 4.1 cm endometrial cavity. The average endometrial thickness is 0.1 cm and the average myometrial thickness is 3.3 cm. The myometrium is trabeculated and the previously described leiomyoma has a dowd-white whorled cut surface without hemorrhage or necrosis. An additional smaller leiomyoma is also identified, measuring 0.6 cm in greatest dimension. The right fallopian tube measures 6.5 x 0.9 cm and the left fallopian tube measures 6.6 x 0.9 cm. The fallopian tubes have pink-dodw smooth external surfaces and [place] [address] PATHOLOGY RPT PROCEDURE Name: KATARZYNA SILVEIRA Room #: 211-P DIS IN M.R.#: [id number] Admission: 08/15/20 Date of : 74 Discharge: 08/21/20 Report #: [id number] Path Case #: [id number] pinpoint lumens. Equipment Service Technician sections are submitted as follows A1 12:00 cervix A2 6:00 cervix A3 anterior endomyometrium A4 posterior endomyometrium A5 right fallopian tube A6 left fallopian tube A7 client service representative leiomyomata ([facility]; 08/20/2020) [facility] 08/20/2020 0956 Local . 02 Pathologist provided ICD-10: N85.9, N80.0, D25.9, N72, N87.9, N80.0 . 02 CPT . 206014 Specimen Comment: A courtesy copy of this report has been sent to [phone] Specimen Comment: Report sent to Performed at: [address] [facility], [place] [id number] MD Zach Meléndez MD Phone: [phone] Performed at: [address] [id number] MD Martha Hoover MD Phone: [phone]
== END 2020-08-21 13:39 | disposition home or self-care (01) | DRG 742 ==
LOC: ER 13:44 → 2N 18:02 → EROBS 18:02 → 2N 19:32
PROVIDERS: Emergency Medicine; Hospitalist; Internal Medicine Hematology & Oncology; Obstetrics & Gynecology; ADMIT Hospitalist; ATTEND Hospitalist
PROC: 30233N1 Transfusion of Nonautologous Red Blood Cells into Peripheral Vein, Percutaneous Approach (ICD-10-PCS; principal; 2020-08-15)
PROC: 0UT70ZZ Resection of Bilateral Fallopian Tubes, Open Approach (ICD-10-PCS; 2020-08-18)
PROC: 0UT90ZZ Resection of Uterus, Open Approach (ICD-10-PCS; 2020-08-18)
DX: D25.9 Leiomyoma of uterus, unspecified (principal); D62 Acute posthemorrhagic anemia; N93.9 Abnormal uterine and vaginal bleeding, unspecified; D69.6 Thrombocytopenia, unspecified; N80.0 Endometriosis of uterus; N92.1 Excessive and frequent menstruation with irregular cycle; Z20.822 Contact with and (suspected) exposure to COVID-19
CPT/HCPCS: 10797; 50010; 50093; 50101; 50386; 50445; 50455; 52287; 56524; 56525; 56526; 57092; 57108; 62110; 62900; 70005